=== PATIENT | male | born 1970 | race Caucasian/White ===

== ENCOUNTER 2016-10-20 16:32 | Emergency (ER) | payer SELFPAY ==
[2016-10-20] MEDS ORDERED: fentaNYL 100 MCG/2 ML INJ IVP ONE (16:46)
--- NOTE | 2016-10-20 16:58 | EDPHY ---
H & P HPI/ROS: Chief complaint: Left leg injury History of present illness: This is a 46-year-old male who presents to the emergency department for left leg injury. Patient was skiing earlier today when he fell injuring his left leg. Primarily reports pain around the left knee. He has noted a deformity. He cannot move the leg secondary to pain. He was seen by ski maker and splinted and sent to the emergency department for further care. No report of open wounds, paresthesias or abnormal coolness in the leg. No report of trauma to other parts of the body including the head, neck, back, chest, abdomen, pelvis or other extremities. Review of systems: A 10 point review of systems was obtained and other than described above was negative - Physical Exam Exam: General Appearance: Alert, nontoxic Eyes: PERRLA Respiratory: Lungs clear to auscultation bilaterally Cardiac: Regular rate and rhythm. Gastrointestinal: Bowel sounds normal. Abdomen is soft, nondistended, nontender. Neurological: Alert and oriented x4. Strength and sensation intact and symmetrical. Sensation is intact throughout the left leg. Skin: No open wounds to the left leg. Musculoskeletal: Head is normocephalic, atraumatic. There is a deformity to the left leg with the lower leg slightly laterally deviated. The rest of the extremities are unremarkable and moving well. Constitutional: Initial Vital Signs Temperature (C) 36.4 C 10/20/16 16:50 Heart Rate 76 10/20/16 16:50 Respiratory Rate 16 10/20/16 16:50 Blood Pressure 128/75 H 10/20/16 16:50 O2 Sat (%) 98 10/20/16 16:50 O2 Delivery Mode Room Air Allergies/Adverse Reactions: No Known Allergies Allergy (Unverified 07/29/09 09:07) Home Medications: Medication Instructions Recorded NO HOME MEDS 07/29/09 oxyCODONE/APAP 5/325 [Percocet 1 tab PO Q4H #30 tab 10/20/16 5/325 (*)] Medical Decision Making - Diagnostics Imaging: X-ray series of the left knee shows an acute, comminuted lateral tibial plateau fracture and a lipohemarthrosis, see report for complete details Procedures: Procedure: Splint placement. A posterior long leg splint was applied. After application of the splint I returned and re-examined the patient. The splint was adequately immobilizing the joint and distal to the splint the patient's circulation and sensation was intact. ED Course/Re-evaluation: Patient seen under the supervision of my secondary supervising physician Dr. Graeme Hobbs. Patient presents to the emergency department for a left knee injury. The leg is neurovascularly intact. X-ray of the knee reveals a fracture. I have consulted with Orthopedics, Dr. Rocio Renee, he is comfortable with patient being discharged home in a posterior long leg splint and following up in clinic. By history and physical exam no evidence of trauma to other parts of the body. Home care is discussed with the patient. Strict return precautions are given. Patient voiced understanding and agreement with plan. Differential Diagnosis: Included but not limited to contusion, sprain or strain, bony fracture, joint dislocation - Data Points Medications Given: Discontinued Medications Fentanyl (Sublimaze) 100 mcg IVP EDNOW ONE Stop: 10/20/16 16:47 Last Admin: 10/20/16 17:17 Dose: 100 mcg Departure - Departure Disposition: Home, Routine, Self-Care Clinical Impression: Tibial plateau fracture, left Qualifiers: Encounter type: initial encounter Fracture type: closed Qualified Code(s): S82.142A - Displaced bicondylar fracture of left tibia, initial encounter for closed fracture Condition: Good Instructions: Leg Fracture (ED), Splint Care (ED) Additional Instructions: Please call and arrange a follow-up appointment with Orthopedics tomorrow as discussed You have been prescribed Percocet for pain. Percocet contains Tylenol, do not take extra Tylenol/acetaminophen/Apap with it. It is sedating. Elevate the leg as much as possible Ice the injury, 20 minutes on, at least 3 times daily If symptoms worsen or new symptoms develop return to the emergency department for recheck Referrals: NONE *PRIMARY CARE P,. [Primary Care Provider] - As per Instructions Rocio Renee MD [Medical Doctor] - As per Instructions Prescriptions: oxyCODONE/APAP 5/325 [Percocet 5/325 (*)] 1 tab PO Q4H #30 tab
[2016-10-20 17:17] VITALS: RESP 16
[2016-10-20 19:34] VITALS: BP 137/82; PULSE 65; TEMP 97.9; O2SAT 96
== END 2016-10-20 19:34 | disposition home or self-care (01) ==
DX: S82.142A Displaced bicondylar fracture of left tibia, initial encounter for closed fracture (principal); V00.321A Fall from snow-skis, initial encounter; Y92.39 Other specified sports and athletic area as the place of occurrence of the external cause; Y93.23 Activity, snow (alpine) (downhill) skiing, snowboarding, sledding, tobogganing and snow tubing
CPT/HCPCS: 96374; J3010